=== PATIENT | male | born 1950 | race Caucasian/White ===

== ENCOUNTER 2017-05-15 11:58 | Outpatient (CLI) | payer OTHER ==
--- NOTE | 2017-05-15 13:36 | XRAY Report ---
THREE VIEW LUMBAR SPINE: 05/15/2017 CLINICAL INDICATION: Pain. FINDINGS: AP, lateral, and coned down views of the lumbar spine demonstrate moderate degenerative di sk and facet disease. There is no evidence of fracture or subluxation. The bowel gas pattern appears unremarkable. Bilateral iliac stents are incidentally noted. IMPRESSION: MODERATE DEGENERATIVE CHANGES. JOB #: [id number] EXT JOB #:[id number]
== END 2017-05-15 11:59 | disposition home or self-care (01) ==
LOC: DI.S 11:58
PROVIDERS: ATTEND Nurse Practitioner Family
DX: M51.36 Other intervertebral disc degeneration, lumbar region (principal); M47.9 Spondylosis, unspecified
CPT/HCPCS: 72100

== ENCOUNTER 2018-04-09 06:07 | Day surgery (SDC) | payer MEDICARE, OTHER ==
[2018-04-09] MEDS ORDERED: PHENYLEPHRINE 2.5% OPHTH 2 ML DROPS ONE (06:21)
[2018-04-09] MEDS ORDERED: KETOROLAC 0.45% OPHTH DROPS ONE (06:21)
[2018-04-09] MEDS ORDERED: PROPARACAINE 0.5% OPHTH DROPS 15 ML ONE ×2 (06:21→07:11)
[2018-04-09] MEDS ORDERED: CYCLOPENTOLATE 1% OPHTH DROPS 2 ML ONE (06:21)
[2018-04-09] MEDS ORDERED: KETOROLAC 0.45% OPHTH DROPS LEFTEYE ONE (06:40)
[2018-04-09] MEDS ORDERED: CYCLOPENTOLATE 1% OPHTH DROPS 2 ML LEFTEYE ONE (06:40)
[2018-04-09] MEDS ORDERED: PHENYLEPHRINE 2.5% OPHTH 2 ML DROPS LEFTEYE ONE (06:40)
[2018-04-09] MEDS ORDERED: PROPARACAINE 0.5% OPHTH DROPS 15 ML LEFTEYE ONE ×2 (06:40→07:49)
[2018-04-09] MEDS ORDERED: LACTATED RINGERS 500 ML IV ONE (06:46)
--- NOTE | 2018-04-09 07:04 | ANESTHESIA ---
Pre-Anesthesia VS, & Labs - Diagnosis Left sclerotic cataract - Procedure Cataract extraction with lens implant Vital Signs: Temp Pulse Resp BP Pulse Ox 37 C 16 142/66 H 97 04/09/18 06:36 04/09/18 06:36 04/09/18 06:36 04/09/18 06:36 Height 5 ft 10 in Weight (kg) 98.1 kg Body Mass Index 22.4 - NPO >8 hours - Lab Results Lab results reviewed: Yes Other Lab Results: BS 86 Home Medications and Allergies Home Medications: Ambulatory Orders Medication Instructions Recorded Confirmed Atorvastatin Calcium 40 mg PO DAILY 04/08/18 04/09/18 Carvedilol 12.5 mg PO BID 04/08/18 04/09/18 Gabapentin 900 mg PO TID 04/08/18 04/09/18 Lisinopril 2.5 mg PO DAILY 04/08/18 04/09/18 Metformin HCl [Metformin HCl ER] 750 mg PO BID 04/08/18 04/09/18 Allergies/Adverse Reactions: Allergies Allergy/AdvReac Type Severity Reaction Status Date / Time No Known Drug Allergies Allergy Verified 04/08/18 11:32 Anes History & Medical History - Anesthetic History Anesthesia Complications: reports: No previous complications - Medical History Cardiovascular: reports: Hypertension, High cholesterol, Valve disorder Pulmonary: reports: None Gastrointestinal: reports: Colon polyps Urinary: reports: None Musculoskeletal: reports: None Endocrine/Autoimmune: reports: Type 2 diabetes Skin: reports: None - Surgical History General: Colonoscopy, Other (colectomy) Cardiothoracic: Valve replacement (Aortic valve replacement), AAA Exam General: Alert Dental: WNL Mouth Openin Fingerbreadth Neck Mobility: Normal Mallampati classification: III Thyromental Distance: 4-6 cm Respiratory: Lungs clear Cardiovascular: Regular rate Mental/Cognitive Status: Alert/Oriented X3 Plan Anesthesia Type: MAC Consent for Procedure(s) Verified and Reviewed: Yes Code Status: Attempt Resuscitation ASA classification: 2-Mild systemic disease Is this case an emergency?: No
[2018-04-09] MEDS ORDERED: CARBACHOL 0.01% 1.5 ML VIAL IO ONE (07:07)
[2018-04-09] MEDS ORDERED: TRIAMCINOLONE PF 40 MG/ML VIAL ONE (07:08)
[2018-04-09] MEDS ORDERED: BRIMONIDINE 0.1% OPHTH DROPS 5 ML ONE (07:10)
[2018-04-09] MEDS ORDERED: TIMOLOL 0.5% OPHTH DROPS ONE (07:11)
[2018-04-09] MEDS ORDERED: BRIMONIDINE 0.2% OPHTH DROPS 5 ML ONE (07:13)
[2018-04-09] MEDS ORDERED: BRIMONIDINE 0.2% OPHTH DROPS 5 ML OPTH ONE (07:43)
[2018-04-09] MEDS ORDERED: TIMOLOL 0.5% OPHTH DROPS OPTH ONE (07:43)
[2018-04-09] MEDS ORDERED: VANCOMYCIN OPHTHALMI 8MG/0.8ML 8 MG/0.8 ML SYRINGE IO ONE (07:43)
[2018-04-09] MEDS ORDERED: BSS/LIDOCAINE/EPINEPHRINE 1 ML SYRINGE IO ONE (07:43)
[2018-04-09] MEDS ORDERED: EPINEPHrine 1 MG/ML AMP IR ONE (07:43)
[2018-04-09] MEDS ORDERED: CHONDR SULF/HYALURONATE SYRINGE IO ONE (07:43)
[2018-04-09] MEDS ORDERED: MIDAZOLAM 2 MG/2 ML VIAL IVP ONE (07:47)
[2018-04-09] MEDS ORDERED: PROPARACAINE 0.5% OPHTH DROPS 15 ML RIGHTEYE ONE (07:49)
[2018-04-09 07:59] VITALS: BP 136/68
--- NOTE | 2018-04-09 11:07 | OPERATIVE REPORT ---
DATE OF SERVICE: 04/09/2018 Physician: Robbie Barrett MD PREOPERATIVE DIAGNOSIS: Visually significant cataract, left eye. This was his first cataract surger y. POSTOPERATIVE DIAGNOSIS: Visually significant cataract, left eye. This was his first cataract surge ry. NAME OF PROCEDURE: Phacoemulsification with posterior chamber intraocular lens implant, left eye. SURGEON: Robbie Barrett MD ANESTHESIA: Monitored anesthesia care. COMPLICATIONS: None. OPERATIVE INDICATIONS: This is a 68-year-old man with progressive vision loss in the left eye due to 3+ nuclear sclerotic cataract. Best corrected visual acuity was 20/30 with glare to 20/100 in the l eft eye. INDICATIONS FOR SURGERY: Overall decrease in vision, difficulty seeing words on a computer screen, d ifficulty reading; difficulty seeing words, closed caption or game scores on TV; difficulty seeing st reet signs, difficulty driving in low light or at night, difficulty driving at night because of headl ights from other vehicles and/or street lights, difficulty with glare or bright lights in any situati on, difficulty tracking a golf ball and decreased acuity with firearms. He was consented at length c oncerning the risks and benefits of cataract surgery, after which he expressed a desire to proceed wi surgery. OPERATIVE PROCEDURE: The patient was taken into OR #3 and placed under monitored anesthesia care. A surgical timeout was conducted confirming correct patient, correct procedure, and correct surgical s ite. He was given topical anesthesia, and then prepped and draped in the usual sterile fashion. The eye was entered at the 6 and 3 o'clock positions. Intracameral Shugarcaine was injected into the an terior chamber, followed by Viscoat. A continuous-tear curvilinear capsulorrhexis was performed. Th e nucleus was hydrodissected and phacoemulsified. Cortex was evacuated using automated infusion and aspiration. Provisc was injected in the capsular bag, and a 16.0 diopter intraocular lens was insert ed into the bag. Approximately 0.8 mL of a mixture of triamcinolone, moxifloxacin and vancomycin was injected subconjunctivally in the superior quadrant for infection and inflammation prophylaxis. I a nd A was used to evacuate the viscoelastic materials. The eye was inflated to physiologic pressure u sing a balanced salt solution and found to be watertight. The patient was taken from the operating r oom in good condition and given postop instructions. TD: 04/09/2018 08:08
== END 2018-04-09 06:08 | disposition home or self-care (01) ==
LOC: SDS 06:07
PROVIDERS: ATTEND Ophthalmology
PROC: 08RK3JZ Replacement of Left Lens with Synthetic Substitute, Percutaneous Approach (ICD-10-PCS; principal; 2018-04-09 07:30)
DX: H25.12 Age-related nuclear cataract, left eye (principal); E11.9 Type 2 diabetes mellitus without complications; I10 Essential (primary) hypertension; Z87.891 Personal history of nicotine dependence; Z95.2 Presence of prosthetic heart valve
CPT/HCPCS: 66984; A9270; J3300; J3490; V2632

== ENCOUNTER 2018-11-21 10:08 | Outpatient (CLI) | payer MEDICARE | END 2018-11-21 10:09 | disposition home or self-care (01) | LOC: RT 10:08 | PROVIDERS: ATTEND Internal Medicine Gastroenterology | DX: I73.9 Peripheral vascular disease, unspecified (principal); E11.9 Type 2 diabetes mellitus without complications; I10 Essential (primary) hypertension; Z86.010 Personal history of colon polyps | CPT/HCPCS: 93005 ==

== ENCOUNTER 2019-01-07 06:19 | Day surgery (SDC) | payer MEDICARE ==
[2019-01-07] MEDS ORDERED: LACTATED RINGERS 1,000 ML IV ONE (07:02)
[2019-01-07] MEDS ORDERED: MIDAZOLAM 2 MG/2 ML VIAL IVP ONE (07:21)
[2019-01-07] MEDS ORDERED: fentaNYL 250 MCG/5 ML VIAL IVP ONE (07:21)
[2019-01-07 08:25] VITALS: BP 109/67
== END 2019-01-07 06:20 | disposition home or self-care (01) ==
LOC: SDS 06:19
PROVIDERS: ATTEND Internal Medicine Gastroenterology
PROC: 0DBN8ZZ Excision of Sigmoid Colon, Via Natural or Artificial Opening Endoscopic (ICD-10-PCS; principal; 2019-01-07 07:30)
DX: Z12.11 Encounter for screening for malignant neoplasm of colon (principal); I12.9 Hypertensive chronic kidney disease with stage 1 through stage 4 chronic kidney disease, or unspecified chronic kidney disease; E11.22 Type 2 diabetes mellitus with diabetic chronic kidney disease; N18.3 Chronic kidney disease, stage 3 (moderate); E11.51 Type 2 diabetes mellitus with diabetic peripheral angiopathy without gangrene; I70.209 Unspecified atherosclerosis of native arteries of extremities, unspecified extremity; E78.00 Pure hypercholesterolemia, unspecified; Z98.0 Intestinal bypass and anastomosis status; Z79.84 Long term (current) use of oral hypoglycemic drugs
CPT/HCPCS: 45380; J3010; J7120

== ENCOUNTER 2019-04-07 16:51 | Outpatient (CLI) | payer MEDICARE | END 2019-04-07 16:52 | disposition EMS.NT | LOC: EMS 16:51 | PROVIDERS: ATTEND Surgery | DX: R47.81 Slurred speech (principal); R26.2 Difficulty in walking, not elsewhere classified; Z72.89 Other problems related to lifestyle ==

== ENCOUNTER 2020-02-29 11:20 | Outpatient (CLI) | payer MEDICARE ==
--- NOTE | 2020-02-29 11:47 | SLEEP CARE CONSULTATION ---
Information from patient questionnaire entered by Karen Shelton. I have reviewed and concur with the information entered by Karen Shelton. This document represents the service I personally performed and the decisions made by me, Effie Ferreira MD, [facility]. History of Present Illness Service Date and Time: 02/29/2020 1120 Reason for Visit: New patient Chief Complaint: reports: Snoring Duration of Symptoms: 20+ YEARS Usual bedtime: 9596-3370 Time it takes to fall asleep: 15 minutes Snores at night: Yes (on right side/back) Observed to quit breathing while asleep: No Sleeps alone due to snoring: No Reasons for waking at night: reports: Bathroom Toss, Turn, or Twitch while sleeping: No Recalls having dreams: Yes Usually gets out of bed at: 0152-3700 Feels refreshed in the morning: Yes Morning headache: No Sleepy or fatigued during the day: No Ever fallen asleep while driving: No Dreams during day naps: No Prior sleep studies: No Additional HPI information: The patient comes in today per his fiancee's request. She says he snores very loudly. She has not seen him quit breathing. She uses a CPAP herself. The reports sleeping fine. He does not feel tired or sleepy during the day. He does have hypertension. 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 Subjective Initial [place] Sleepiness Scale score: 5 Past Medical History Past Medical History: reports: Hypertension, Diabetes, Arthritis, Gout, Impotence, Depression, Other (lower back pain, cholesterol) Social History The patient's occupation is retired. Patient is / and lives in [place]. Have you smoked in the past 12 months: No Cigarettes per day (20/pack): 20 (or more) Years of smokin Quit date: 03/12/2004 Smoking Pack Years: 32.0 Alcohol use: Yes Alcohol amount and frequency: a few/day Caffeine use: Yes Caffeine amount and frequency: coffee in AM Family History Family history of sleep disordered breathing: Yes Family Hx Sleep Apnea: Father: Snoring, Sibling: Snoring Allergies and Home Medications Drug allergies reviewed: Yes Home medication list reviewed: Yes Review of Systems Weight gain over past 5 years: 40 Weight loss over past 5 years: 40 Cardiovascular: reports: high blood pressure Gastrointestinal: reports: heartburn, diarrhea Neurological: reports: gait or balance problems Psychiatric: reports: anxiety, depression Ear/Nose/Throat: reports: wisdom teeth removed Endocrine: denies: thyroid disease, history of goiter, sluggishness, too hot or cold, excessive thirst, increased appetite, increased urination, unexplained weakness, other Musculoskeletal: reports: back pain Immunologic: denies: sneezing, rash, itching, allergies to food or environment, other Physical Exam Vital signs obtained and entered by: To avoid unnecessary COVID exposure, the exam was not performed. Height: 6 ft Weight: 212 lb Body Mass Index: 28.7 BMI Classification: Overweight Impression and Plan IMPRESSION: 1. Possible Obstructive Sleep Apnea-Hypopnea Syndrome, as suggested by history of loud snoring and history of hypertension. Narrow oropharynx and obesity are common predisposing factors for obstructive sleep apnea-hypopnea syndrome. Pathophysiology of sleep-disordered breathing was discussed. I recommend proceeding to polysomnography to confirm the diagnosis and to assess severity. If he has significant sleep disordered breathing, a manual CPAP titration study will also be performed to find the optimal treatment pressure. I informed the patient of what the sleep studies involve and after some discussion, he agreed to proceed. Plan: 1. Schedule an in-laboratory polysomnography. 2. Avoid alcohol, sedative and muscle relaxant around bedtime. 3. Attempt to lose weight. 4. Return in 1 to 2 weeks after the study to discuss results and initiate therapy. Visit Type: In Office Time Spent with Patient (minutes): 15 Provider Statement: I spent 100% of the Face to Face Visit with the patient with greater than 50% spent counseling the patient and coordination of care.
== END 2020-02-29 11:21 | disposition home or self-care (01) ==
LOC: SC 11:20
PROVIDERS: ATTEND Internal Medicine Pulmonary Disease
DX: R06.83 Snoring (principal); E11.9 Type 2 diabetes mellitus without complications; F32.9 Major depressive disorder, single episode, unspecified; I11.9 Hypertensive heart disease without heart failure; E66.3 Overweight; Z68.28 Body mass index [BMI] 28.0-28.9, adult
CPT/HCPCS: 99203; G0463; 99212

== ENCOUNTER 2020-05-28 08:06 | Outpatient (CLI) | payer MEDICARE ==
--- NOTE | 2020-05-29 08:34 | Ultrasound Report ---
PROCEDURE: Duplex Aorta Complete INDICATIONS: CLAUDICATION DUE TO ATHERSCLEROSIS, long-standing smoking history, TECHNIQUE: Grayscale and color Doppler imaging COMPARISON: Prior CT abdomen/pelvis 03/11/2013. FINDINGS: On the right the distal aorta is seen to have a biphasic waveform with flow velocity normal at 71.2 c m/s. The right common iliac artery shows moderate elevation of flow velocity at 166 cm/s, with a biph asic/monophasic waveform. More distally the external iliac artery ranges in flow velocity from 177 to 194 cm/s, monophasic. At the common femoral artery flow velocity is further increased indicating wor sening stenosis measuring up to 281 cm/s, monophasic. On the left the common iliac artery flow velocity measures 128 cm/s, biphasic/monophasic. The externa l iliac artery flow velocity ranges from 126 to 146 centimeters per second, generally monophasic. At the common femoral artery the flow velocity is elevated at 170 cm/s, monophasic. Quality of visualization of the pancreatic area is somewhat limited by overlying bowel gas. The exact anatomy in this area is poorly defined and CT scanning with contrast could be obtained for more accu rate assessment. IMPRESSION: The atherosclerotic plaquing within the aorta and its pelvic tributaries is significant, resulting in progressive elevation of flow velocities through the pelvic arterial vasculature extendi ng into the proximal thighs bilaterally, greater on the right than the left. Depending on the clinica l status follow-up by vascular surgical consultation may be warranted at this time. Quality of visualization is somewhat limited by overlying bowel gas and calcific atherosclerotic plaq uing. Depending on the clinical status follow-up by abdomen/pelvis CT scanning with contrast may be b eneficial if surgical intervention is anticipated. Reviewed by: Toy Ortiz MD on 05/29/2020 8:33 AM PDT Approved by: Toy Ortiz MD on 05/29/2020 8:33 AM PDT Station ID: [id number]
--- NOTE | 2020-05-29 09:36 | Ultrasound Report ---
PROCEDURE: Duplex Lwr Ext Arterial Bilat INDICATIONS: CLAUDICATION DUE TO ATHERSCLEROSIS TECHNIQUE: Color and pulse Doppler interrogation was performed of both lower extremity arterial systems, with im age documentation. COMPARISON: Pelvic vascular ultrasound same day reviewed. FINDINGS: Right lower extremity: Common femoral artery: 281 cm/sec, with monophasic flow. Deep femoral artery: 91 cm/sec, with monophasic flow. Proximal superficial femoral artery: 236 cm/sec, with monophasic flow. Mid superficial femoral artery: 84 cm/sec, with biphasic flow. Distal superficial femoral artery: 37 cm/sec, with biphasic flow. Popliteal artery: 38 cm/sec, with biphasic flow. Posterior tibial artery: 72 cm/sec, with biphasic flow. Anterior tibial artery/dorsalis pedis: 35/18 cm/sec, with monophasic/biphasic flow. Nova-scale imaging description: Moderate calcific and soft plaque, high-grade stenosis at the proxim al superficial femoral artery from calcific plaquing. Left lower extremity: Common femoral artery: 170 cm/sec, with monophasic flow. Deep femoral artery: 58 cm/sec, with monophasic flow. Proximal superficial femoral artery: 75 cm/sec, with monophasic flow. Mid superficial femoral artery: 73 cm/sec, with monophasic flow. Distal superficial femoral artery: 36 cm/sec, with monophasic/biphasic flow. Popliteal artery: 45 cm/sec, with monophasic flow. Posterior tibial artery: 34 cm/sec, with monophasic flow. Anterior tibial artery/dorsalis pedis: 26/15 cm/sec, with monophasic/monophasic flow. Nova-scale imaging description: Moderate calcific and soft plaque scattered through the arterial vas culature. IMPRESSION: Pelvic arterial stenosis bilaterally with reduced inflow perfusion resulting in monophasic flow at th e common femoral arteries and proximal to mid superficial femoral arteries where scattered areas of c alcific and soft plaque are prominent focally greater on the right than the left where at the proxima l superficial femoral artery on the right a high-grade calcific plaque region produces prominent elev ated flow velocities. Focal high-grade stenosis is not seen within the calf vessels, with two-vessel runoff into the lower calf regions and monophasic flow within the anterior tibial arteries bilaterall y. Overall, significant lower extremity arterial insufficiency appears present. Reviewed by: Toy Ortiz MD on 05/29/2020 9:35 AM PDT Approved by: Toy Ortiz MD on 05/29/2020 9:35 AM PDT Station ID: [id number]
== END 2020-05-28 08:07 | disposition home or self-care (01) ==
LOC: DI 08:06
PROVIDERS: ATTEND Internal Medicine
DX: I70.213 Atherosclerosis of native arteries of extremities with intermittent claudication, bilateral legs (principal)
CPT/HCPCS: 93925; 93978

== ENCOUNTER 2020-06-05 20:44 | Outpatient (CLI) | payer MEDICARE | END 2020-06-05 20:45 | disposition home or self-care (01) | LOC: SC 20:44 | PROVIDERS: ATTEND Internal Medicine Pulmonary Disease | DX: G47.61 Periodic limb movement disorder (principal); R06.83 Snoring; E66.3 Overweight; Z68.28 Body mass index [BMI] 28.0-28.9, adult; I11.9 Hypertensive heart disease without heart failure; F32.9 Major depressive disorder, single episode, unspecified; E11.9 Type 2 diabetes mellitus without complications | CPT/HCPCS: 95810 ==

== ENCOUNTER 2020-06-20 17:37 | Outpatient (CLI) | payer MEDICARE ==
--- NOTE | 2020-06-20 13:08 | SLEEP CARE CONSULTATION ---
Information from patient questionnaire entered by Karen Shelton. I have reviewed and concur with the information entered by Karen Shelton. This document represents the service I personally performed and the decisions made by , Naa Boggs ARNP. History of Present Illness Service Date and Time: 06/20/2020 1300 Initial [place] Sleepiness Scale score: 5 Additional HPI information: GAETANO SIDHU returns for a Telehealth visit for results of the recently perfo rmed home sleep study. The patient was informed of the following findings: He had no significant sleep disordered breathing with an average AHI 2.7 and a richie oxygen saturation of 82%. He was found to have moderate RLMs without fragmentation of sleep. I explained the pathophysiology behind obstructive sleep apnea. Patient does not have sleep apnea and was advised how weight gain could increase the risk of developing sleep apnea in the future. I strongly encouraged the patient to lose weight. Patient has moderate snoring. Snoring can be reduced by weight loss. Weight loss is best achieved with diet consult. Patient instructed to contact PCP for referral. Snoring can also be treated with an oral appliance from a dentist. Advised to check insurance coverage. In addition, an ENT evaluation can be do to see if other treatment is indicated. Patient counseled not drink alcohol less than 4 hours before bedtime as it can increase snoring and apnea. Patient was cautioned about risks of drowsy driving until sleepiness symptoms resolve. Patient denies drowsy driving. Sleep Study - Results Type of Sleep Study: Polysomnography Prior sleep studies: Yes Year and Where: 06/2020 [facility] Polysomnography/Home Sleep Study results: IMPRESSION: The quality of the study is good. The patient had normal sleep efficiency. The sleep architecture was normal as well. Respiratory monitoring showed no significant sleep disordered breathing (AHI = 2.7). There was mild hypoxia (richie oxygen saturation of 82% and oxygen saturation at or below 88% in 15 minutes). The respiratory events occurred independently of sleep stage and body position (supine AHI = 2.8; non-supine = 2.59). Snore was moderate in intensity. There was moderate periodic leg movement of sleep not associated with sleep fragmentation. Cardiac rhythm was normal sinus rhythm with occasional premature ventricular contractions. No abnormal behavior (parasomnia) observed during the night. Allergies and Home Medications Drug allergies reviewed: Yes (NKDA) Home medication list reviewed: Yes (no changes) Review of Systems Review of systems same as previous: Yes (no changes) Physical Exam Vital signs obtained and entered by: Telehealth visit, no vitals obtained Height: 6 ft Impression and Plan 1. Snoring but no significant sleep disordered breathing. Patient advised that often weight loss will reduce snoring as well as apnea risk. An oral appliance can also be used for snoring. This would require a dental consultation. Patient cautioned not to use other online appliances as can cause bite issues. Patient is advised to check if insurance will cover. An ENT consult can also be helpful to determine if any other treatment is an option. 2. Periodic limb movement, moderate, that did not fragment patients sleep. Periodic limb movement of sleep (PLMS) is characterized by episodes of repetitive limb movements that occur during sleep and usually involve the lower limbs. The etiology is unknown but can be associated with restless leg syndrome (RLS), neuropathy, spinal cord diseases, kidney disease, rheumatological disorders, narcolepsy, obstructive sleep apnea, and REM sleep behavior disorder. Other factors that can increase PLMS and/or RLS are heredity and iron deficiency as reflected by a low serum ferritin level below 50 to 75mcg / L. Several medications can precipitate or aggravate PLMS such as selective serotonin re- uptake inhibitor antidepressants, tricyclic antidepressants, lithium, and dopamine receptor antagonists with the exception of bupropion. Caffeine can also aggravate PLMS and should be avoided. Sleep hygiene methods can also improve sleep as well as lifestyle changes such as regular exercise. Patient was advised that no treatment is needed at this time. If symptoms increase, then further evaluation is indicated. * Attempt to lose weight * Avoid alcohol consumption near bedtime * The patient is cautioned about driving until sleepiness is completely resolved. * Return as needed for worsening symptoms or a change in symptoms. Counseling Topics: Weight loss health impact Visit Type: Telehealth Video Video Type: [employer] Mobile Patient Location: Home Location of Provider: Home Patient agrees and consents to this telehealth visit type: Yes Patient agrees to have their insurance billed: Yes Time Spent with Patient (minutes): 15 Provider Statement: I spent 100% of the Telehealth Video Call with the patient with greater than 50% spent counseling the patient and coordination of care.
== END 2020-06-20 17:38 | disposition home or self-care (01) ==
LOC: SC 17:37
PROVIDERS: ATTEND Nurse Practitioner Family
DX: R06.83 Snoring (principal); G47.61 Periodic limb movement disorder

== ENCOUNTER 2020-06-29 13:10 | Outpatient (CLI) | payer MEDICARE ==
--- NOTE | 2020-06-29 14:43 | Ultrasound Report ---
PROCEDURE: Ankle Brachial Index INDICATIONS: PERIPHERAL VASCULAR DISEASE TECHNIQUE: Ankle-brachial indices were obtained bilaterally and recorded. COMPARISONS: None. FINDINGS: Right ankle brachial index (VEENA): 0.9 Left ankle brachial index (VEENA): 0.6 Healing potential: Ankle pressures >55 mm Hg in non-diabetics and >80 mm Hg in diabetics are likely to achieve primary h ealing of ischemic foot ulcers. Toe pressures >30 mm Hg are likely to achieve primary healing of ischemic foot ulcers, toe or transme tatarsal amputations. IMPRESSION: The ankle brachial index on the right of 0.9 is at the level of presence of mild atherosclerotic dise ase, but on the left moderate arterial disease is present with the ankle brachial index of 0.6. Reviewed by: Toy Ortiz MD on 06/29/2020 2:42 PM PDT Approved by: Toy Ortiz MD on 06/29/2020 2:42 PM PDT Station ID: [id number]
== END 2020-06-29 13:11 | disposition home or self-care (01) ==
LOC: DI 13:10
PROVIDERS: ATTEND Internal Medicine
DX: I73.9 Peripheral vascular disease, unspecified (principal)
CPT/HCPCS: 93922